=== PATIENT | female | born 1985 | race Caucasian/White ===

== ENCOUNTER 2017-07-15 13:39 | Emergency (ER) | payer OTHER | END 2017-07-15 16:19 | disposition home or self-care (01) | LOC: ER1 13:39 | DX: S20.312A Abrasion of left front wall of thorax, initial encounter (principal); S40.811A Abrasion of right upper arm, initial encounter; S20.412A Abrasion of left back wall of thorax, initial encounter; R51 Headache; V47.5XXA Car driver injured in collision with fixed or stationary object in traffic accident, initial encounter; Y92.410 Unspecified street and highway as the place of occurrence of the external cause | CPT/HCPCS: 36415; 70450; 71010; 99284 ==